=== PATIENT | male | born 1940 | race Caucasian/White ===

== ENCOUNTER → 2017-12-29 | Outpatient (CLI) | payer OTHER, MEDICARE ==
[2017-12-29 18:30] LABS: PSA SCREENING 0.27 NG/ML (< 4.0)
== END ==
LOC: M SMT 14:04
DX: Z12.5 Encounter for screening for malignant neoplasm of prostate (principal)
CPT/HCPCS: G0103

== ENCOUNTER → 2017-12-30 | Outpatient (REF) | payer OTHER ==
[2017-12-30 13:55] LABS: APPEARANCE, URINE CLEAR (CLEAR); BACTERIA, URINE AUTO NEGATIVE (NEGATIVE); BILIRUBIN, URINE AUTO NEGATIVE (NEGATIVE); BLOOD, URINE BLOOD NEGATIVE (NEGATIVE); COLOR, URINE YELLOW (YELLOW); GLUCOSE, URINE (UA) AUTO NEGATIVE (NEGATIVE); KETONE, URINE AUTO NEGATIVE (NEGATIVE); LEUKOCYTE ESTERASE, URINE AUTO NEGATIVE (NEGATIVE); MUCUS, URINE SMALL (NEGATIVE); NITRITE, URINE AUTO NEGATIVE (NEGATIVE); PROTEIN, URINE AUTO 1+ mg/dL (NEGATIVE); RBC, URINE AUTO 4 /HPF (0-3); SPECIFIC GRAVITY URINE AUTO 1.017 (1.002-1.035); SQUAMOUS EPITHELIAL CELL UR AU 0 /HPF (0-6); UROBILINOGEN, URINE AUTO 0.2 mg/dL (0.0-2.0); WBC, URINE AUTO 2 /HPF (0-3)
== END ==
LOC: M SMT 13:10
DX: R31.0 Gross hematuria (principal); R82.99 Other abnormal findings in urine
CPT/HCPCS: 81001

== ENCOUNTER 2019-06-16 01:35 | Inpatient (IN) | payer MEDICARE, OTHER ==
[~2019-06-16] VITALS: Ht 177.8 cm; Wt 96.4 kg
[2019-06-16 03:11] VITALS: BP 139/68
[2019-06-16] MEDS ORDERED: CORE25TA PO (04:45)
[2019-06-16] MEDS ORDERED: CARB200C4 PO ×2 (04:45)
[2019-06-16] MEDS ORDERED: ASPI-161 PO (04:45)
[2019-06-16] MEDS ORDERED: PROT1TAB2 PO (04:45)
[2019-06-16] MEDS ORDERED: HYDR12.55 PO (04:45)
[2019-06-16] MEDS ORDERED: MAGN400T PO (04:45)
[2019-06-16] MEDS ORDERED: VITMTA PO (04:45)
--- NOTE | 2019-06-16 06:07 | HPEPDOC ---
General Date of Admission 06/16/19 Date of Service: Jun 16, 2019 Primary Care Physician: Umberto Pete MD Attending Physician: TRAMAINE WADE DO Chief Complaint The patient is a 79-year-old male admitted with a reason for visit of Acute Pancreatitis. Source: Family Exam Limitations: Clinical conditions Timing/Duration: Day(s) Associated Symptoms: Loss of appetite, Malaise, Vomiting History of Present Illness Patient is 79 years old male with past medical history of hypertension, seizure, bilateral inguinal hernia, GERD was transferred from another hospital with abdominal pain. According to family members patient developed abdominal pain for past few days completely treated with nausea and vomiting today. Patient was admitted to [facility] where he was found to have inflamed pancreas on the abdominal CAT scan, cholelithiasis, increase bilirubin level of 2.1, white blood count of 11.3, lipase level 6612. Patient has been transferred to our hospital for possible ERCP. Home Medications Scheduled Carbamazepine (Carbamazepine ER) 200 Mg Cpmp.12hr, 200 MG PO DAILY, (Reported) Carbamazepine (Carbamazepine ER) 200 Mg Cpmp.12hr, 400 MG PO QHS, (Reported) Carvedilol (Coreg) 25 Mg Tablet, 25 MG PO BID, (Reported) Hydrochlorothiazide (Hydrochlorothiazide) 12.5 Mg Tablet, 12.5 MG PO DAILY, (Reported) Magnesium Oxide (Magnesium Oxide) 400 Mg Tablet, 400 MG PO DAILY, (Reported) Multivitamins (Thera M Plus Tablet) 1 Each Tablet, 1 TAB PO DAILY, (Reported) Pantoprazole Sodium (Protonix) 40 Mg Tablet.dr, 40 MG PO BID, (Reported) Allergies Coded Allergies: metformin (Verified Allergy, Unknown, 06/16/19) Past Medical History Medical History hypertension, seizure, bilateral inguinal hernia, GERD Family History Reviewed and found not pertinent Social History * Smoker: Denies Alcohol: Denies Drugs: denies A-FIB/CHADSVASC A-FIB History Current/History of A-Fib/PAF?: No Current PO Anticoag Therapy: No Review of Systems Constitutional: Reports: Weakness, Fatigue; Denies: Chills, Fever Eyes: Denies: Pain ENT: Denies: Head Aches, Dysphagia Skin: Denies: Rash, Lesions Pulmonary: Denies: Dyspnea, Cough Cardiovascular: Denies: Chest Pain, Palpitations Gastrointestinal: Reports: Nausea, Vomiting, Abdominal Pain Genitourinary: Denies: Dysuria, Frequency Hematologic: Denies: Bruising, Bleeding Excessively Endocrine: Denies: Polydipsia, Polyphagia Musculoskeletal: Denies: Neck Pain Neurological: Denies: Weakness Psych: Denies: Mood Normal Physical Examination General Exam: Positive: Mild Distress Eye Exam: Positive: PERRLA ENT Exam: Positive: Atraumatic Neck Exam: Positive: Supple; Negative: JVD Chest Exam: Positive: Clear to auscultation Heart Exam: Positive: Rate Normal Telemetry: Positive: No significant arrhythmia Abdomen Exam: Positive: BS Hypoactive, Tenderness (diffuse abdominal tenderness, no rigidity) Extremity Exam: Negative: Clubbing, Cyanosis Skin Exam: Negative: Nl turgor and temperature Neuro Exam: Positive: Cranial Nerves 3-12 NL (oriented 1 in time) Psych Exam: Positive: Other (lethargic) Vital Signs Vital Signs Date Time Temp Pulse Resp B/P (MAP) Pulse Ox O2 Delivery O2 Flow Rate FiO2 06/16/19 03:11 99.3 91 17 139/68 (91) 91 4.0 Assessment/Plan Patient is 79 years old male with past medical history of hypertension, seizure, bilateral inguinal hernia, GERD was transferred from another hospital with abd ominal pain. According to family members patient developed abdominal pain for past few days completely treated with nausea and vomiting today. Patient was admitted to [facility] where he was found to have inflamed pancreas on the abdominal CAT scan, cholelithiasis, increase bilirubin level of 2.1, white blood count of 11.3, lipase level 6612. Patient has been transferred to our hospital for possible ERCP. Problems (1) Pancreatitis, acute Status: Acute Problem Text: Abdominal ultrasound There is concern for gallstone in the common biliary duct. IV fluids, Zosyn IV Pain management Appreciate/agree with GI recommendation for possible ERCP (2) Diabetes mellitus Status: Acute Problem Text: Insulin sliding scale Plan / VTE VTE Prophylaxis Ordered?: Yes TRAMAINE WADE DO Jun 16, 2019 06:07
[2019-06-16] MEDS: NS 1,000 ML IV SCH ×2 (06:09→12:21)
[2019-06-16 06:32] LABS: HEMATOCRIT 41.4 % (42.0-52.0); HEMOGLOBIN 14.6 g/dl (13.5-17.5); MEAN CORPUSCULAR HEMOGLOBIN 32.5 pg (27.0-33.0); MEAN CORPUSCULAR HGB CONC 35.3 g/dl (32.0-36.5); MEAN CORPUSCULAR VOLUME 92.2 fl (80.0-96.0); PLATELET COUNT, AUTOMATED 102 10^3/uL (150-450); RED BLOOD COUNT 4.49 10^6/uL (4.30-6.10); WHITE BLOOD COUNT 15.5 10^3/uL (4.0-10.0)
[2019-06-16 06:56] LABS: ALBUMIN 3.4 GM/DL (3.2-5.2); ALT/SGPT 169 U/L (12-78); BILIRUBIN,DIRECT 1.4 MG/DL (0.0-0.2); BILIRUBIN,TOTAL 2.1 MG/DL (0.2-1.0); BILIRUBIN,TOTAL 2.3 MG/DL (0.2-1.0); BLOOD UREA NITROGEN 16 MG/DL (7-18); CALCIUM LEVEL 8.1 MG/DL (8.8-10.2); CARBON DIOXIDE LEVEL 27 MEQ/L (21-32); CHLORIDE LEVEL 108 MEQ/L (98-107); CREATININE FOR GFR 1.16 MG/DL (0.70-1.30); GLOMERULAR FILTRATION RATE > 60.0 (>35); GLUCOSE, FASTING 136 MG/DL (70-100); POTASSIUM SERUM 3.6 MEQ/L (3.5-5.1); SODIUM LEVEL 144 MEQ/L (136-145); TOTAL PROTEIN 5.5 GM/DL (6.4-8.2); TOTAL PROTEIN 5.8 GM/DL (6.4-8.2)
[2019-06-16 08:00] VITALS: BP 158/75
[2019-06-16] MEDS: PIPERACILLIN/TAZOBACTAM SOD 3.375 GM in D5W MINI-BAG PLUS 50 ML IV SCH ×4 (08:52→23:55)
[2019-06-16] MEDS: PANTOPRAZOLE 40MG TAB (PROTONIX) PO SCH ×2 (09:00→20:55)
[2019-06-16] MEDS: HEPARIN SOD (PORCINE) 5000 UNITS/ML VIAL SC SCH ×2 (09:00→21:50)
[2019-06-16] MEDS: carBAMazepine XR 200 MG TAB PO SCH ×2 (09:00→22:23)
--- NOTE | 2019-06-16 09:35 | REP ---
ABDOMINAL ULTRASOUND: Real-time sonographic evaluation of the abdomen was performed. Study is limited due to bowel gas and body habitus. There is a 1.6 cm gallstone in the gallbladder without gallbladder wall thickening. There is no intrahepatic or extrahepatic biliary dilatation. Common bile duct measuring 6 mm. Liver is heterogenous with no gross mass. The pancreas is not seen due to overlying bowel gas. Spleen is enlarged measuring 15.4 x 13.9 x 7.2 cm. Splenic index is 1541. Kidneys are normal in size and echotexture. Right kidney measures 11.9 x 5.7 x 5.8 cm and left kidney 11.4 x 5.3 x 5.9 cm. There is no renal mass, hydronephrosis or definite nephrolithiasis. Proximal abdominal aorta is not visualized due to overlying bowel gas. Mid to distal abdominal aorta is not significantly dilated. Mid abdominal aorta is slightly ectatic at 3.1 cm in AP dimension, distally 1.9 cm. No ascites is seen. IMPRESSION: Gallstone in the gallbladder measures 1.6 cm in diameter without gallbladder wall thickening, free fluid or biliary dilatation. Splenomegaly. No ascites. Limited exam due to patient body habitus and bowel gas. Electronically Signed by Denton Bustamante MD 06/16/2019 11:40 A
[2019-06-16 12:00] VITALS: BP 144/64
[2019-06-16 12:36] LABS: BASO % 0.1 % (0.0-1.0); EOS % 0.1 % (0.0-3.0); HEMATOCRIT 41.3 % (42.0-52.0); HEMOGLOBIN 14.6 g/dl (13.5-17.5); LYMPH # 0.7 10^3/uL (1.5-5.0); LYMPH % 5.2 % (24.0-44.0); MEAN CORPUSCULAR HEMOGLOBIN 32.7 pg (27.0-33.0); MEAN CORPUSCULAR HGB CONC 35.4 g/dl (32.0-36.5); MEAN CORPUSCULAR VOLUME 92.6 fl (80.0-96.0); MONO # 0.7 10^3/uL (0.0-0.8); MONO % 5.3 % (0.0-5.0); NEUTROPHILS # 11.9 10^3/uL (1.5-8.5); NEUTROPHILS % 88.9 % (36.0-66.0); RED BLOOD COUNT 4.46 10^6/uL (4.30-6.10); WHITE BLOOD COUNT 13.4 10^3/uL (4.0-10.0)
[2019-06-16 12:52] LABS: INR 1.49; PROTHROMBIN TIME 17.7 SECONDS (11.8-14.0)
[2019-06-16] MEDS ORDERED: ONDANSETRON 4 MG TAB (S0181) PO ONE (13:00)
[2019-06-16 13:04] LABS: ALBUMIN 3.3 GM/DL (3.2-5.2); ALT/SGPT 138 U/L (12-78); BILIRUBIN,DIRECT 1.2 MG/DL (0.0-0.2); BILIRUBIN,TOTAL 2.1 MG/DL (0.2-1.0); BLOOD UREA NITROGEN 15 MG/DL (7-18); CREATININE FOR GFR 1.03 MG/DL (0.70-1.30); GLOMERULAR FILTRATION RATE > 60.0 (>35); TOTAL PROTEIN 5.5 GM/DL (6.4-8.2)
[2019-06-16] MEDS: LR 1,000 ML IV SCH ×2 (13:22→20:50)
[2019-06-16 13:25] LABS: PLATELET COUNT, AUTOMATED 94 10^3/uL (150-450)
[2019-06-16] MEDS: MULTIVITAMINS/MINERALS THERAP 1 TAB PO SCH (14:56)
[2019-06-16] MEDS: CARVedilol 12.5 MG TAB PO SCH ×2 (14:56→20:55)
[2019-06-16] MEDS: MAGNESIUM OXIDE 400 MG TAB (MAG-OX) PO SCH (14:57)
[2019-06-16] MEDS: hydroCHLOROthiazide 12.5 MG CAPSULE PO SCH (14:57)
[2019-06-16 16:00] VITALS: BP 159/73
[2019-06-16] MEDS: ALBUTEROL SULFATE 2.5 MG/0.5 ML INH NEB SOLN NEB PRN (17:26)
--- NOTE | 2019-06-16 18:58 | CR.PDOC ---
General Date of Consultation: Jun 16, 2019 Referring Provider: TRAMAINE WADE DO Attending Physician: SAILAJA BURTON MD Consultation Reason for consult: pancreatitis and abnormal liver panel. HPI: 79 years old male patient with HTN, seizure disorder, bilateral inguinal hernia, initially presented to [facility] for upper abdominal pain, with recurrent episodes of vomiting, noted to have pancreatitis and was transferred to [facility] for possible need for ERCP. Patient received around 1500ml of NS in [facility]. Patient was admitted for further management and GI was consulted for evaluation. Patient examined bedside at 4:30PM with patients son at bedside. Patient reports his symptoms started with acute onset abdominal pain, upper abdominal area after he had his supper, associated with multiple episodes of vomiting which lasted until he was treated in [facility]. Patient reports no prior similar symptoms, and no recent alcohol use, no Sick contacts. Patient denies any radiation of pain, but the intensity improved now. Patient also reports coughing that started today in with some yellowish phlegm. Patient also reports having subjective chills and fever. Pertinent negative GI symptoms: Patient denies diarrhea, loss of appetite, early satiety or unintentional weight loss. No history of hematemesis, melena or hematochezia. Review of Systems: GI: as stated above CVS: No chest pain, No palpitations, No leg swelling. 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 Skin: No rash : No hematuria, No burning sensation of the urine ENT: No ear discharge/ pain, No dysphagia. Eyes: No photophobia. Home medications: reviewed. Antithrombotic agents - None. Medical h/o: As above. Surgical h/o: None on abdomen. Social h/o: Alcohol- Denies ( used to drink when he was teenager), tobacco- denies , IVDA/ drugs- denies. Family h/o of GI cancers -none Prior Endoscopies: None in [facility]. But patient reports having screening colonoscopy in October 2018 in [facility] - normal as per patient. Prior GI evaluation: None in [facility] Exam: Vitals: reviewed. Noted one documented fever of 101 at 4 PM. General: Alert and oriented x 3, not in distress HEENT: NO pallor, no icterus. Normal oropharynx, NO cervical lymph nodes. Chest: symmetric with bilateral air entry, mild coarse breath sounds heard on right side. CVS: S1, S2 heard, normal, no murmurs . Abdomen: non-distended, no surgical scars, soft, minimal tenderness in epigastric area, no rigidity or guarding, no palpable masses, normal bowel sounds heard. Rectal exam: Patient refused. Extremities: no pedal edema, pulses palpable. CARTON PACKAGING MACHINE OPERATOR: no focal motor or sensory deficits. Moves all extremities Skin: no rash. Labs: reviewed. Imaging tests: reviewed ultrasound abdomen results with radiologist -- CBD 6 mm. Noted large gallstone of 1.6 cm. Impression: - Acute onset upper abdominal pain, with nausea and vomiting, which improved but with persistent abdominal pain, elevated lipase and mild elevated biliarubin and liver enzyme, - now improving, CT abdomen from [facility] showing pancreatitis and US abdomen in [facility] - normal CBD -- Likely Biliary pancreatitis with passed CBD stone. DDx-- Cholecystitis vs less likely CBD stone. - New onset cough with phlegm, hypoxia ( requiring nasal oxygen),and fever -- DDx- rule out aspiration penumonia vs less likely biliary sepsis. ( improving liver enzymes). Recommendations: - Patient educated about the test results, possible differential diagnoses and All questions answered. - Will treat pancreatitis with IV hydration -- prefer ringers lacate drip -- atleast 3-5 ml/kg/ hour with close monitoring of fluid status. Titrate the fluid rate to maintain atleast 30 ml/ hour urinary output. - Ultrasound abdomen obtained and reviewed. CT scan images from [facility] to be scanned into [facility]. - Monitor Liver panel, CBC, septic work up, Chest Xray. - Close monitoring in PCU. - Empiric antibiotics for now. - If worsening liver panel or no other source of sepsis identified on septic work up, then would proceed with ERCP depending on clinical course. At this time cholangitis is not suspected as the CBD is not dilated, no stone identified in CBD in imaging and liver panel is improving as well as abdominal pain. - GI will Follow. Please update GI if any change in status. Plan of care discussed with patient and primary team. Patient verbalized understanding and agreed with the plan. Laboratory Data CBC/BMP Laboratory Tests 06/16/19 06:10 Red Blood Count 4.49, Mean Corpuscular Volume 92.2, Mean Corpuscular Hemoglobin 32.5, Mean Corpuscular Hemoglobin Concent 35.3, Red Cell Distribution Width 14.1, Calcium Level 8.1 L, Aspartate Amino Transf (AST/SGOT) 143 H, Alanine Aminotransferase (ALT/SGPT) 169 H, Alkaline Phosphatase 88, Total Bilirubin 2.3 H, Total Protein 5.5 L, Albumin 3.4 06/16/19 12:15 Red Blood Count 4.46, Mean Corpuscular Volume 92.6, Mean Corpuscular Hemoglobin 32.7, Mean Corpuscular Hemoglobin Concent 35.4, Red Cell Distribution Width 14.4, Neutrophils (%) (Auto) 88.9 H, Lymphocytes (%) (Auto) 5.2 L, Monocytes (%) (Auto) 5.3 H, Eosinophils (%) (Auto) 0.1, Basophils (%) (Auto) 0.1, Neutrophils # (Auto) 11.9 H, Lymphocytes # (Auto) 0.7 L, Monocytes # (Auto) 0.7, Eosinophils # (Auto) 0.0, Basophils # (Auto) 0.0 Allergies Coded Allergies: metformin (Verified Allergy, Unknown, 06/16/19) Home Medications Scheduled Aspirin (Aspirin EC) 81 Mg Tablet.dr, 81 MG PO DAILY, (Reported) Carbamazepine (Carbamazepine ER) 200 Mg Cpmp.12hr, 200 MG PO DAILY, (Reported) Carbamazepine (Carbamazepine ER) 200 Mg Cpmp.12hr, 400 MG PO QHS, (Reported) Carvedilol (Coreg) 25 Mg Tablet, 25 MG PO BID, (Reported) Hydrochlorothiazide (Hydrochlorothiazide) 12.5 Mg Tablet, 12.5 MG PO DAILY, (Reported) Magnesium Oxide (Magnesium Oxide) 400 Mg Tablet, 400 MG PO DAILY, (Reported) Multivitamins (Thera M Plus Tablet) 1 Each Tablet, 1 TAB PO DAILY, (Reported) Pantoprazole Sodium (Protonix) 40 Mg Tablet.dr, 40 MG PO BID, (Reported) SAILAJA BURTON MD Jun 16, 2019 18:58
[2019-06-16 19:06] LABS: BASO % 0.2 % (0.0-1.0); HEMATOCRIT 39.7 % (42.0-52.0); HEMOGLOBIN 13.6 g/dl (13.5-17.5); LYMPH # 0.9 10^3/uL (1.5-5.0); LYMPH % 7.5 % (24.0-44.0); MEAN CORPUSCULAR HEMOGLOBIN 32.4 pg (27.0-33.0); MEAN CORPUSCULAR HGB CONC 34.3 g/dl (32.0-36.5); MEAN CORPUSCULAR VOLUME 94.5 fl (80.0-96.0); MONO # 0.7 10^3/uL (0.0-0.8); MONO % 5.4 % (0.0-5.0); NEUTROPHILS # 10.5 10^3/uL (1.5-8.5); NEUTROPHILS % 86.3 % (36.0-66.0); WHITE BLOOD COUNT 12.2 10^3/uL (4.0-10.0)
--- NOTE | 2019-06-16 19:08 | REP ---
Chest x-ray: Two views. History: Septic workup. Question aspiration pneumonia. Comparison chest x-ray: November 19, 2007. Findings: The lungs are exposed at a low level of inspiration. Right hemidiaphragm is somewhat elevated. Heart is mildly enlarged. There are degenerative changes in the thoracic spine. There is no definite infiltrate. Impression: Low level of inspiration. Cardiomegaly. No definite infiltrate. Electronically Signed by Giovanny Cooper MD 06/16/2019 07:00 P
[2019-06-16 19:10] LABS: PLATELET COUNT, AUTOMATED 95 10^3/uL (150-450)
[2019-06-16 19:39] LABS: ALBUMIN 3.1 GM/DL (3.2-5.2); BILIRUBIN,DIRECT 1.2 MG/DL (0.0-0.2); BILIRUBIN,TOTAL 1.9 MG/DL (0.2-1.0); TOTAL PROTEIN 5.1 GM/DL (6.4-8.2)
[2019-06-16 20:00] VITALS: BP 147/69
[2019-06-16 21:35] LABS: APPEARANCE, URINE HAZY (CLEAR); BACTERIA, URINE AUTO NEGATIVE (NEGATIVE); BILIRUBIN, URINE AUTO NEGATIVE (NEGATIVE); BLOOD, URINE BLOOD 3+ (NEGATIVE); COLOR, URINE AMBER (YELLOW); GLUCOSE, URINE (UA) AUTO NEGATIVE (NEGATIVE); KETONE, URINE AUTO NEGATIVE (NEGATIVE); LEUKOCYTE ESTERASE, URINE AUTO NEGATIVE (NEGATIVE); MUCUS, URINE SMALL (NEGATIVE); NITRITE, URINE AUTO NEGATIVE (NEGATIVE); PROTEIN, URINE AUTO 1+ mg/dL (NEGATIVE); RBC, URINE AUTO TNTC /HPF (0-3); SPECIFIC GRAVITY URINE AUTO 1.027 (1.002-1.035); SQUAMOUS EPITHELIAL CELL UR AU 0 /HPF (0-6); UROBILINOGEN, URINE AUTO 0.2 mg/dL (0.0-2.0); WBC, URINE AUTO 3 /HPF (0-3)
[2019-06-16 23:59] VITALS: BP 144/69
[2019-06-17] MEDS: LR 1,000 ML IV SCH ×5 (03:15→21:26)
[2019-06-17 04:00] VITALS: BP 150/72
[2019-06-17] MEDS: PIPERACILLIN/TAZOBACTAM SOD 3.375 GM in D5W MINI-BAG PLUS 50 ML IV SCH ×3 (05:46→18:44)
[2019-06-17 06:14] LABS: INR 1.61; PROTHROMBIN TIME 18.9 SECONDS (11.8-14.0)
[2019-06-17 06:16] LABS: ALBUMIN 2.9 GM/DL (3.2-5.2); ALT/SGPT 84 U/L (12-78); BILIRUBIN,DIRECT 0.8 MG/DL (0.0-0.2); BILIRUBIN,TOTAL 1.5 MG/DL (0.2-1.0); BLOOD UREA NITROGEN 19 MG/DL (7-18); CARBON DIOXIDE LEVEL 29 MEQ/L (21-32); CHLORIDE LEVEL 107 MEQ/L (98-107); CREATININE FOR GFR 1.19 MG/DL (0.70-1.30); GLOMERULAR FILTRATION RATE > 60.0 (>35); GLUCOSE, FASTING 125 MG/DL (70-100); POTASSIUM SERUM 3.3 MEQ/L (3.5-5.1); SODIUM LEVEL 144 MEQ/L (136-145); TOTAL PROTEIN 5.4 GM/DL (6.4-8.2)
[2019-06-17 06:34] LABS: BASO % 0.3 % (0.0-1.0); EOS % 0.4 % (0.0-3.0); HEMATOCRIT 37.7 % (42.0-52.0); HEMOGLOBIN 12.9 g/dl (13.5-17.5); LYMPH # 1.1 10^3/uL (1.5-5.0); LYMPH % 10.2 % (24.0-44.0); MEAN CORPUSCULAR HEMOGLOBIN 32.6 pg (27.0-33.0); MEAN CORPUSCULAR HGB CONC 34.2 g/dl (32.0-36.5); MEAN CORPUSCULAR VOLUME 95.2 fl (80.0-96.0); MONO # 0.6 10^3/uL (0.0-0.8); MONO % 5.6 % (0.0-5.0); NEUTROPHILS # 8.6 10^3/uL (1.5-8.5); NEUTROPHILS % 82.7 % (36.0-66.0); RED BLOOD COUNT 3.96 10^6/uL (4.30-6.10); WHITE BLOOD COUNT 10.4 10^3/uL (4.0-10.0)
[2019-06-17 06:38] LABS: PLATELET COUNT, AUTOMATED 88 10^3/uL (150-450)
[2019-06-17 08:00] VITALS: BP 147/66
[2019-06-17] MEDS: hydroCHLOROthiazide 12.5 MG CAPSULE PO SCH ×2 (09:00→13:15)
[2019-06-17] MEDS: HEPARIN SOD (PORCINE) 5000 UNITS/ML VIAL SC SCH (09:00)
[2019-06-17] MEDS: MAGNESIUM OXIDE 400 MG TAB (MAG-OX) PO SCH ×2 (09:00→13:14)
[2019-06-17] MEDS: PANTOPRAZOLE 40MG TAB (PROTONIX) PO SCH ×2 (09:51→21:26)
[2019-06-17] MEDS: MULTIVITAMINS/MINERALS THERAP 1 TAB PO SCH (09:51)
[2019-06-17] MEDS: CARVedilol 12.5 MG TAB PO SCH ×2 (09:51→21:26)
[2019-06-17] MEDS: carBAMazepine XR 200 MG TAB PO SCH ×2 (10:29→21:26)
[2019-06-17] MEDS: ALBUTEROL SULFATE 2.5 MG/0.5 ML INH NEB SOLN NEB PRN ×2 (10:45→21:42)
[2019-06-17] MEDS ORDERED: POTASSIUM CHLORIDE 10 MEQ SR TABLET PO ONE (13:00)
[2019-06-17 13:07] VITALS: BP 140/65
[2019-06-17 14:10] VITALS: BP 155/70
[2019-06-17] MEDS: ENOXAPARIN 40 MG/0.4 ML SYRINGE (J1650) SC SCH (15:46)
--- NOTE | 2019-06-17 17:43 | IPNPDOC ---
Text Note Date of Service The patient was seen on 06/17/19. NOTE Subjective: Feels better today than last evening when he had a fever. Continues to have a semi dry cough without cathi sputum ROS: +fever, +slightly wet cough He denies worsening abdominal pain, dysuria, dyspnea, nausea, vomiting, diarrhea The rest of the 12 point review of systems was otherwise negative Objective: Vitals: See below General: Alert and oriented x 3, no sign of distress, comfortable HEENT: Ill appearing, eyes without pallor, anicteric, dry MM Chest: Course breath sounds that clear on having him cough, moving air well, no wheezing or cathi crackles CVS: S1, S2 heard, normal, no murmurs Abdomen: Normoactive bowel sounds, soft, mild epigastric pain on palpation but otherwise benign exam with no guarding, masses, fluid wave or rigidity Extremities: warm and well perfused, no pedal edema CONSERVATOR ARTIFACTS: no focal motor or sensory deficits noted Labs: Please see below 06/16 UA - bland Imaging: Abdominal US 06/16/2019: Gallstone in the gallbladder measures 1.6 cm in diameter without gallbladder wall thickening, free fluid or biliary dilatation. Splenomegaly. No ascites. Limited exam due to patient body habitus and bowel gas. CXR 06/16/2019: Low level of inspiration. Cardiomegaly. No definite infiltrate. Assessment: 79 year old man with hypertension, epilepsy, bilateral inguinal hernias, GERD who presented to [place] with acute epigastric pain and found to have presume gall stone pancreatitis and transferred to [facility] in anticipation that he may require an ERCP but has since had improvement in his LFTs, had a dedicated ultrasound with no evidence of a CBD stone and is therefore being medically managed for acute pancreatitis with fluids, NPO and antibiotics given the inflammation and fevers. His course was c/b a persistent fever episode yesterday that prompted work up that yielded a bland UA, unremarkable CXR though he does have a wet cough and sputum that grew mixed tee with pending blood cultures. He was otherwise mantained on zosyn and has clinically improved today. Plan: Pancreatitis LR at 200ml/h NPO No pain at this time, will monitor Appreciate GI recommendations Cholelithiasis: Will require lap anneliese at some point once the pancreatitis has resolved Fevers: -Although LFTs were improving, and imaging showed cholelithiasis without gall bladder inflammation, and not CBD stone to serve as nidus for ascending cholangitis, will keep davin given his complaints were abdominal and has pancreatic inflammation -In the meantime, has a wet cough with an unremarkable CXR and sputum with mixed tee, will monitor and if he spikes another fever, will check another CXR and sputum in case something blossoms eventually -UA showed no evidence of a urinary source Diabetes mellitus: Insulin sliding scale DVT prophylaxis: Lovenox Dispo: was transferred from PCU to med surg for management of pancreatitis. Will likely be discharged home when clinically ready. VS,Fishbone, I+O VS, Fishbone, I+O Laboratory Tests 06/16/19 18:54 Red Blood Count 4.20 L, Mean Corpuscular Volume 94.5, Mean Corpuscular Hemoglobin 32.4, Mean Corpuscular Hemoglobin Concent 34.3, Red Cell Distribution Width 14.6 H, Neutrophils (%) (Auto) 86.3 H, Lymphocytes (%) (Auto) 7.5 L, Monocytes (%) (Auto) 5.4 H, Eosinophils (%) (Auto) 0.0, Basophils (%) (Auto) 0.2, Neutrophils # (Auto) 10.5 H, Lymphocytes # (Auto) 0.9 L, Monocytes # (Auto) 0.7, Eosinophils # (Auto) 0.0, Basophils # (Auto) 0.0 06/17/19 05:29 Red Blood Count 3.96 L, Mean Corpuscular Volume 95.2, Mean Corpuscular Hemo globin 32.6, Mean Corpuscular Hemoglobin Concent 34.2, Red Cell Distribution Width 14.3, Neutrophils (%) (Auto) 82.7 H, Lymphocytes (%) (Auto) 10.2 L, Monocytes (%) (Auto) 5.6 H, Eosinophils (%) (Auto) 0.4, Basophils (%) (Auto) 0.3, Neutrophils # (Auto) 8.6 H, Lymphocytes # (Auto) 1.1 L, Monocytes # (Auto) 0.6, Eosinophils # (Auto) 0.0, Basophils # (Auto) 0.0 Vital Signs Date Time Temp Pulse Resp B/P (MAP) Pulse Ox O2 Delivery O2 Flow Rate FiO2 06/17/19 14:20 2.0 06/17/19 14:10 98.2 69 21 155/70 (54) 96 I&O- Last 24 Hours up to 6 AM 06/17/19 06:00 Intake Total 2850 ml Output Total 1000 ml Balance 1850 ml JOSE ENRIQUE GONZALEZ MD Jun 17, 2019 17:43
[2019-06-17 22:00] VITALS: BP 152/76
[2019-06-18] MEDS: PIPERACILLIN/TAZOBACTAM SOD 3.375 GM in D5W MINI-BAG PLUS 50 ML IV SCH ×4 (00:17→18:41)
[2019-06-18 02:00] VITALS: BP 160/73
[2019-06-18] MEDS: LR 1,000 ML IV SCH ×2 (04:16)
[2019-06-18 06:00] VITALS: BP 155/76
[2019-06-18 06:32] LABS: HEMATOCRIT 33.7 % (42.0-52.0); HEMOGLOBIN 11.4 g/dl (13.5-17.5); MEAN CORPUSCULAR HEMOGLOBIN 32.2 pg (27.0-33.0); MEAN CORPUSCULAR HGB CONC 33.8 g/dl (32.0-36.5); MEAN CORPUSCULAR VOLUME 95.2 fl (80.0-96.0); RED BLOOD COUNT 3.54 10^6/uL (4.30-6.10); WHITE BLOOD COUNT 7.7 10^3/uL (4.0-10.0)
[2019-06-18 06:37] LABS: PLATELET COUNT, AUTOMATED 80 10^3/uL (150-450)
[2019-06-18 06:54] LABS: ALBUMIN 2.6 GM/DL (3.2-5.2); ALT/SGPT 52 U/L (12-78); BLOOD UREA NITROGEN 15 MG/DL (7-18); CARBON DIOXIDE LEVEL 30 MEQ/L (21-32); CHLORIDE LEVEL 106 MEQ/L (98-107); CREATININE FOR GFR 0.95 MG/DL (0.70-1.30); GLOMERULAR FILTRATION RATE > 60.0 (>35); GLUCOSE, FASTING 112 MG/DL (70-100); LIPASE 584 U/L (73-393); POTASSIUM SERUM 3.5 MEQ/L (3.5-5.1); SODIUM LEVEL 142 MEQ/L (136-145); TOTAL PROTEIN 5.2 GM/DL (6.4-8.2)
[2019-06-18] MEDS: carBAMazepine XR 200 MG TAB PO SCH ×2 (09:47→20:20)
[2019-06-18] MEDS: PANTOPRAZOLE 40MG TAB (PROTONIX) PO SCH ×2 (09:47→20:20)
[2019-06-18] MEDS: MAGNESIUM OXIDE 400 MG TAB (MAG-OX) PO SCH (09:47)
[2019-06-18] MEDS: MULTIVITAMINS/MINERALS THERAP 1 TAB PO SCH (09:47)
[2019-06-18] MEDS: CARVedilol 12.5 MG TAB PO SCH ×2 (09:48→20:20)
[2019-06-18] MEDS: hydroCHLOROthiazide 12.5 MG CAPSULE PO SCH (09:48)
[2019-06-18] MEDS: ENOXAPARIN 40 MG/0.4 ML SYRINGE (J1650) SC SCH (09:49)
[2019-06-18] MEDS: ALBUTEROL SULFATE 2.5 MG/0.5 ML INH NEB SOLN NEB PRN (09:53)
[2019-06-18 14:00] VITALS: BP 156/73
--- NOTE | 2019-06-18 20:09 | IPNPDOC ---
Text Note Date of Service The patient was seen on 06/18/19. NOTE Subjective: Feels well today, enjoyed his breakfast cough is improving ROS: improving +slighly wet cough He denies abdominal pain, dysuria, dyspnea, nausea, vomiting, diarrhea The rest of the 12 point review of systems was otherwise negative Objective: Vitals: See below General: Alert and oriented x 3, no sign of distress, comfortable HEENT: Ill appearing, eyes without pallor, anicteric, dry MM Chest: Course breath sounds, otherwise moving air well, no wheezing or cathi crackles CVS: S1, S2 heard, normal, no murmurs Abdomen: Normoactive bowel sounds, soft, no pain on palpation Extremities: warm and well perfused, no pedal edema 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 His course was c/b fever that prompted an infectious work up that yielded a bland UA, unremarkable CXR, sputum culture that grew mixed tee negative blood cultures. He remains on zosyn and has clinically improved and now advanced to a soft diet. Plan: Pancreatitis Stopped fluids as he is taking good PO On soft diet now No pain at this time, will monitor Appreciate GI recommendations Continues zosyn for GI coverage given the inflammation and fevers, now that he is taking PO, will switch to cipro/flagyl tomorrow AM Cholelithiasis: Will require lap anneliese at some point once the pancreatitis has resolved Diabetes mellitus: Insulin sliding scale DVT prophylaxis: Lovenox Dispo: Clinically management of pancreatitis, nearing discharge, likely in 48h VS,Fishbone, I+O VS, Fishbone, I+O Laboratory Tests 06/18/19 05:35 Red Blood Count 3.54 L, Mean Corpuscular Volume 95.2, Mean Corpuscular Hemo globin 32.2, Mean Corpuscular Hemoglobin Concent 33.8, Red Cell Distribution Width 13.6, Calcium Level 8.0 L, Aspartate Amino Transf (AST/SGOT) 25, Alanine Aminotransferase (ALT/SGPT) 52, Alkaline Phosphatase 76, Total Bilirubin 1.0, Total Protein 5.2 L, Albumin 2.6 L Vital Signs Date Time Temp Pulse Resp B/P (MAP) Pulse Ox O2 Delivery O2 Flow Rate FiO2 06/18/19 14:00 98.0 68 19 156/73 (100) 93 2.0 I&O- Last 24 Hours up to 6 AM 06/18/19 06:00 Intake Total 3800 ml Output Total 1250 ml Balance 2550 ml JOSE ENRIQUE GONZALEZ MD Jun 18, 2019 20:09
[2019-06-18 22:00] VITALS: BP 157/71
[2019-06-19] MEDS: PIPERACILLIN/TAZOBACTAM SOD 3.375 GM in D5W MINI-BAG PLUS 50 ML IV SCH ×4 (00:14→17:59)
[2019-06-19 05:54] LABS: HEMATOCRIT 31.2 % (42.0-52.0); HEMOGLOBIN 10.9 g/dl (13.5-17.5); MEAN CORPUSCULAR HEMOGLOBIN 31.9 pg (27.0-33.0); MEAN CORPUSCULAR HGB CONC 34.9 g/dl (32.0-36.5); MEAN CORPUSCULAR VOLUME 91.2 fl (80.0-96.0); RED BLOOD COUNT 3.42 10^6/uL (4.30-6.10); WHITE BLOOD COUNT 5.1 10^3/uL (4.0-10.0)
[2019-06-19 05:55] LABS: PLATELET COUNT, AUTOMATED 87 10^3/uL (150-450)
[2019-06-19 06:00] VITALS: BP 141/86
[2019-06-19 06:14] LABS: BLOOD UREA NITROGEN 12 MG/DL (7-18); CALCIUM LEVEL 7.9 MG/DL (8.8-10.2); CARBON DIOXIDE LEVEL 33 MEQ/L (21-32); CHLORIDE LEVEL 101 MEQ/L (98-107); CREATININE FOR GFR 0.94 MG/DL (0.70-1.30); GLOMERULAR FILTRATION RATE > 60.0 (>35); GLUCOSE, FASTING 126 MG/DL (70-100); POTASSIUM SERUM 3.2 MEQ/L (3.5-5.1); SODIUM LEVEL 137 MEQ/L (136-145)
[2019-06-19] MEDS ORDERED: POTASSIUM CHLORIDE 10 MEQ SR TABLET PO ONE (09:00)
[2019-06-19 09:13] LABS: MAGNESIUM LEVEL 1.8 MG/DL (1.8-2.4)
[2019-06-19] MEDS: MAGNESIUM OXIDE 400 MG TAB (MAG-OX) PO SCH (10:07)
[2019-06-19] MEDS: MULTIVITAMINS/MINERALS THERAP 1 TAB PO SCH (10:07)
[2019-06-19] MEDS: PANTOPRAZOLE 40MG TAB (PROTONIX) PO SCH ×2 (10:07→21:49)
[2019-06-19] MEDS: carBAMazepine XR 200 MG TAB PO SCH ×2 (10:07→21:49)
[2019-06-19] MEDS: hydroCHLOROthiazide 12.5 MG CAPSULE PO SCH (10:08)
[2019-06-19] MEDS: ENOXAPARIN 40 MG/0.4 ML SYRINGE (J1650) SC SCH (10:08)
[2019-06-19] MEDS: CARVedilol 12.5 MG TAB PO SCH ×2 (10:09→21:49)
[2019-06-19] MEDS: ALBUTEROL SULFATE 2.5 MG/0.5 ML INH NEB SOLN NEB PRN (10:43)
[2019-06-19 14:00] VITALS: BP 137/64
--- NOTE | 2019-06-19 21:02 | IPNPDOC ---
Text Note Date of Service The patient was seen on 06/19/19. NOTE Subjective: Feels well today, no complaints ROS: improving cough Denies abdominal pain, dysuria, dyspnea, nausea, vomiting, diarrhea, chest pain The rest of the 12 point review of systems was otherwise negative Objective: Vitals: See below General: Alert and oriented x 3, no sign of distress HEENT: anicteric, no pallor, anicteric, MMM Chest: More clear than prior, some upper airway transmitted sounds, moving air well, no wheezing or cathi crackles CVS: S1, S2 heard, normal, no murmurs Abdomen: Normoactive bowel sounds, soft, no pain on palpation Extremities: warm and well perfused, no pedal edema INSIGHT LEADER: no focal motor or sensory deficits noted Labs: Please see below Imaging:reviewed Assessment: 79 year old man with hypertension, epilepsy, bilateral inguinal hernias, GERD who presented to [place] with acute epigastric pain and found to have presume gall stone pancreatitis and transferred to [facility] in anticipation that he may require an ERCP but has since had improvement in his LFTs, had a dedicated ultrasound with no evidence of a CBD stone and is therefore being medically managed for acute pancreatitis with fluids, NPO and antibiotics given the infla mmation and fevers. His course was c/b fever that prompted an infectious work up that yielded a bland UA, unremarkable CXR, sputum culture that grew mixed tee negative blood cultures. He remains on zosyn and has clinically improved and now advanced to a soft diet. Plan: Pancreatitis On soft diet now and tolerating well No pain at this time Appreciate GI recommendations Switch to cipro/flagyl tomorrow AM to complete 7 day course Cholelithiasis: Will require lap anneliese at some point once the pancreatitis has resolved Diabetes mellitus: Insulin sliding scale DVT prophylaxis: Lovenox Dispo: Clinically management of pancreatitis, likely discharge tomorrow VS,Fishbone, I+O VS, Fishbone, I+O Laboratory Tests 06/19/19 05:18 Red Blood Count 3.42 L, Mean Corpuscular Volume 91.2, Mean Corpuscular Hemoglobin 31.9, Mean Corpuscular Hemoglobin Concent 34.9, Red Cell Distribution Width 13.2, Calcium Level 7.9 L Vital Signs Date Time Temp Pulse Resp B/P (MAP) Pulse Ox O2 Delivery O2 Flow Rate FiO2 06/19/19 14:00 98.2 70 20 137/64 (88) 93 06/19/19 09:00 2.0 I&O- Last 24 Hours up to 6 AM 06/19/19 06:00 Intake Total 2470 ml Output Total 775 ml Balance 1695 ml JOSE ENRIQUE GONZALEZ MD Jun 19, 2019 21:02
[2019-06-19] MEDS: metroNIDAZOLE (FLAGYL) 500 MG TAB PO SCH (21:49)
[2019-06-19] MEDS: CIPROFLOXACIN 500 MG TAB PO SCH (21:49)
[2019-06-19 22:00] VITALS: BP 142/64
[2019-06-20] MEDS: CIPROFLOXACIN 500 MG TAB PO SCH ×2 (05:58→17:06)
[2019-06-20 06:00] VITALS: BP 147/71
[2019-06-20] MEDS: ALBUTEROL SULFATE 2.5 MG/0.5 ML INH NEB SOLN NEB PRN ×2 (06:08→20:34)
[2019-06-20] MEDS: metroNIDAZOLE (FLAGYL) 500 MG TAB PO SCH ×3 (09:47→20:27)
[2019-06-20] MEDS: MULTIVITAMINS/MINERALS THERAP 1 TAB PO SCH (09:47)
[2019-06-20] MEDS: PANTOPRAZOLE 40MG TAB (PROTONIX) PO SCH ×2 (09:47→20:27)
[2019-06-20] MEDS: MAGNESIUM OXIDE 400 MG TAB (MAG-OX) PO SCH (09:47)
[2019-06-20] MEDS: ENOXAPARIN 40 MG/0.4 ML SYRINGE (J1650) SC SCH (09:47)
[2019-06-20] MEDS: hydroCHLOROthiazide 12.5 MG CAPSULE PO SCH (09:48)
[2019-06-20] MEDS: carBAMazepine XR 200 MG TAB PO SCH ×2 (09:48→20:27)
[2019-06-20] MEDS: CARVedilol 12.5 MG TAB PO SCH ×2 (09:50→20:28)
[2019-06-20 12:24] LABS: BLOOD UREA NITROGEN 13 MG/DL (7-18); CALCIUM LEVEL 8.2 MG/DL (8.8-10.2); CARBON DIOXIDE LEVEL 30 MEQ/L (21-32); CHLORIDE LEVEL 102 MEQ/L (98-107); CREATININE FOR GFR 0.87 MG/DL (0.70-1.30); GLOMERULAR FILTRATION RATE > 60.0 (>35); GLUCOSE, FASTING 199 MG/DL (70-100); POTASSIUM SERUM 3.4 MEQ/L (3.5-5.1); SODIUM LEVEL 138 MEQ/L (136-145)
[2019-06-20 14:00] VITALS: BP 152/70
[2019-06-20] MEDS ORDERED: POTASSIUM CHLORIDE 10 MEQ SR TABLET PO ONE (20:00)
--- NOTE | 2019-06-20 20:06 | IPNPDOC ---
Text Note Date of Service The patient was seen on 06/20/19. NOTE Subjective: Feels well today Concerned about discharge home before he gets the lap anneliese, of which I explained that it is best if he has time to recover from his pancreatitis ROS: The 12 point review of systems was negative. Cough has resolved. Objective: Vitals: See below General: Alert and oriented x 3, no sign of distress HEENT: anicteric, no pallor, anicteric, MMM Chest: CTAB, no wheezing or crackles CVS: S1, S2 heard, normal, no murmurs Abdomen: Normoactive bowel sounds, soft, no pain on palpation Extremities: warm and well perfused, no pedal edema PLANT TENDER: no focal motor or sensory deficits noted Labs: Please see below Imaging:reviewed Assessment: 79 year old man with hypertension, epilepsy, bilateral inguinal hernias, GERD who presented to [facility] with acute epigastric pain and found to have presume gall stone pancreatitis and transferred to [facility] in anticipation that he may require an ERCP but has since had improvement in his LFTs, had a dedicated ultrasound with no evidence of a CBD stone and is therefore being medically managed for acute pancreatitis with fluids, NPO and antibiotics given the inflammation and fevers. His course was c/b fever that prompted an infectious work up that yielded a bland UA, unremarkable CXR, sputum culture that grew mixed tee negative blood cultures. He was initially placed on zosyn with clinical improvement and now transitioned to cipro/flagyl and ready for discharge after confirming PT recs. Plan: Pancreatitis Now on a regular diet and tolerating it well No pain at this time Appreciate GI recommendations DC Cipro/flagyl tomorrow, and no antibiotics on discharge. Completed course. Cholelithiasis: Will require lap anneliese at some point once the pancreatitis has resolved Diabetes mellitus: Insulin sliding scale DVT prophylaxis: Lovenox Dispo: Likely discharge tomorrow, likely to home pending PT recs VS,Fishbone, I+O VS, Fishbone, I+O Laboratory Tests 06/20/19 11:21 Calcium Level 8.2 L Vital Signs Date Time Temp Pulse Resp B/P (MAP) Pulse Ox O2 Delivery O2 Flow Rate FiO2 06/20/19 14:00 97.9 67 21 152/70 (97) 93 06/19/19 09:00 2.0 I&O- Last 24 Hours up to 6 AM 06/20/19 06:00 Intake Total 660 ml Output Total 800 ml Balance -140 ml JOSE ENRIQUE GONZALEZ MD Jun 20, 2019 20:06
[2019-06-20 22:00] VITALS: BP 156/70
[2019-06-21] MEDS: CIPROFLOXACIN 500 MG TAB PO SCH (05:03)
[2019-06-21] MEDS: ALBUTEROL SULFATE 2.5 MG/0.5 ML INH NEB SOLN NEB PRN (05:09)
[2019-06-21 06:00] VITALS: BP 147/73
[2019-06-21 06:10] LABS: HEMATOCRIT 34.7 % (42.0-52.0); HEMOGLOBIN 12.3 g/dl (13.5-17.5); MEAN CORPUSCULAR HEMOGLOBIN 32.5 pg (27.0-33.0); MEAN CORPUSCULAR HGB CONC 35.4 g/dl (32.0-36.5); MEAN CORPUSCULAR VOLUME 91.8 fl (80.0-96.0); PLATELET COUNT, AUTOMATED 104 10^3/uL (150-450); RED BLOOD COUNT 3.78 10^6/uL (4.30-6.10); WHITE BLOOD COUNT 5.7 10^3/uL (4.0-10.0)
[2019-06-21 06:26] LABS: BLOOD UREA NITROGEN 13 MG/DL (7-18); CALCIUM LEVEL 8.3 MG/DL (8.8-10.2); CARBON DIOXIDE LEVEL 29 MEQ/L (21-32); CHLORIDE LEVEL 102 MEQ/L (98-107); CREATININE FOR GFR 0.88 MG/DL (0.70-1.30); GLOMERULAR FILTRATION RATE > 60.0 (>35); GLUCOSE, FASTING 141 MG/DL (70-100); MAGNESIUM LEVEL 1.8 MG/DL (1.8-2.4); POTASSIUM SERUM 3.8 MEQ/L (3.5-5.1); SODIUM LEVEL 138 MEQ/L (136-145)
[2019-06-21 08:20] VITALS: BP 169/71
[2019-06-21] MEDS: hydroCHLOROthiazide 12.5 MG CAPSULE PO SCH (08:20)
[2019-06-21] MEDS: metroNIDAZOLE (FLAGYL) 500 MG TAB PO SCH (08:20)
[2019-06-21] MEDS: ENOXAPARIN 40 MG/0.4 ML SYRINGE (J1650) SC SCH (08:20)
[2019-06-21] MEDS: PANTOPRAZOLE 40MG TAB (PROTONIX) PO SCH (08:20)
[2019-06-21] MEDS: CARVedilol 12.5 MG TAB PO SCH (08:20)
[2019-06-21] MEDS: carBAMazepine XR 200 MG TAB PO SCH (08:21)
[2019-06-21] MEDS: MULTIVITAMINS/MINERALS THERAP 1 TAB PO SCH (08:21)
[2019-06-21] MEDS: MAGNESIUM OXIDE 400 MG TAB (MAG-OX) PO SCH (08:21)
[2019-06-21 14:00] VITALS: BP 148/69
--- NOTE | 2019-06-21 15:50 | DSES ---
DATE OF ADMISSION: 06/16/2019 DATE OF DISCHARGE: [employer]RARIAN: Dr. Becerra PRIMARY DISCHARGE DIAGNOSES: 1. Gallstone pancreatitis. 2. Cholelithiasis. 3. Type 2 diabetes. 4. History of hypertension. 5. History of epilepsy. 6. History of reflux disease. 7. Chronic thrombocytopenia. DISCHARGE MEDICATIONS: - carbamazepine 200 mg daily and 400 mg at night - Coreg 25 mg twice a day - hydrochlorothiazide 12.5 mg daily - magnesium oxide 400 mg daily - multivitamin one tablet daily - Protonix 40 mg twice a day The patient's aspirin has been held due to referral for laparoscopic cholecystectomy to be done as an outpatient for gallstone pancreatitis. HOSPITAL COURSE: This is an 79-year-old male who presented to the emergency room as a transfer for possible ERCP from [facility] where he presented with abdominal pain in the epigastric region, vomiting and nausea. The patient was given 1.5 liters of fluid, presented with complaints of cough with yellow phlegm. The patient's white count was 15.5. He was febrile to 101. Abdominal ultrasound on 06/16/2019 on admission showed gallstone 1.6 cm without gallbladder wall thickening, free fluid or biliary dilatation. There was splenomegaly noted on limited examination due to body habitus and bowel gas. Chest x-ray showed no infiltrates but with cardiomegaly. The patient was kept nothing by mouth with IV fluids, treated with as needed pain medications. Dr. Becerra recommended laparoscopic cholecystectomy as an outpatient. The patient's liver function tests improved with a total bilirubin of 2.3 on admission and normal at 1 on discharge. AST and ALT also improved with AST 143 to 25 and ALT improving from admission 169 to discharge of 52. The patient's diet was slowly advanced, which he tolerated well. Sputum culture from 06/17/2019 showed oropharyngeal contamination. Chest x-ray showed no acute infiltrate or consolidation. The patient passed a home safety evaluation and is stable for discharge home. The patient completed a full course of Cipro and Flagyl. LABORATORIES ON DISCHARGE: White count 5.7, hemoglobin 12, hematocrit 34, platelet count 104. Sodium 138, potassium 3.8, chloride 102, bicarbonate 29, BUN 13, creatinine 0.88, glucose of 141, magnesium of 1.8. Microbiology: Sputum culture on 06/17/2019 showed oropharyngeal contamination. Blood culture with no growth after 72 hours on 06/16/2019. Ultrasound of the abdomen on 06/16/2019 showed gallstone in gallbladder measuring 1.6 cm in diameter without gallbladder wall thickening, free fluid or biliary dilatation. Splenomegaly with no ascites. Limited examination due to patient's body habitus and bowel gas pattern. Chest x-ray showed low level inspiration, cardiomegaly, no definite infiltrate. Time spent on discharge: 30 minutes. MTDD
== END 2019-06-21 15:45 | disposition home health service (06) | DRG 444 ==
LOC: M MS4PR 03:04 → M PCU 07:13 → M MSPAV 06-17 14:10
PROVIDERS: ADMIT Internal Medicine; ATTEND General Practice
DX: K80.20 Calculus of gallbladder without cholecystitis without obstruction (principal); K85.90 Acute pancreatitis without necrosis or infection, unspecified; E11.9 Type 2 diabetes mellitus without complications; I10 Essential (primary) hypertension; G40.909 Epilepsy, unspecified, not intractable, without status epilepticus; K21.9 Gastro-esophageal reflux disease without esophagitis; D69.6 Thrombocytopenia, unspecified; Z79.899 Other long term (current) drug therapy